=== PATIENT | male | born 1990 | race Two or more races ===

== ENCOUNTER 2021-02-04 11:39 | Emergency (ER) | payer OTHER ==
[~2021-02-04] VITALS: Ht 170.2 cm; Wt 100.0 kg
[2021-02-04] MEDS ORDERED: DEXAMETHASONE 4 MG TABLET PO ONE (12:00)
[2021-02-04 12:02] VITALS: BP 133/93
[2021-02-04] MEDS ORDERED: PRED20TA PO (12:39)
--- NOTE | 2021-02-04 12:39 | PHYS DOC ---
Past History Past Medical History: No Pertinent History Past Surgical History: No Surgical History Smoking: Non-smoker Alcohol Use: None Drug Use: None General Adult EDM: Chief Complaint: CONGESTION HPI: HPI: 30-year-old male presents with report of nasal congestion, watery eyes, and mild ear discomfort. Patient reports has been ongoing for the past few days. Patient reports typically has this occur every year when the weather becomes warm. Denies any nausea, vomiting, or diarrhea. Denies any cough or fever. Denies known exposure to COVID-19. Review of Systems: Review of Systems: Constitutional: Denies fever or chills Eyes: Denies redness or eye pain; reports watery eyes HENT: Reports nasal congestion and ear discomfort and sore throat Respiratory: Denies cough or shortness of breath Cardiovascular: Denies chest pain or palpitations GI: Denies abdominal pain, nausea, or vomiting : Denies dysuria or hematuria Musculoskeletal: Denies back pain or joint pain Integument: Denies rash or skin lesions Neurologic: Denies headache, focal weakness or sensory changes Complete systems were reviewed and found to be within normal limits, except as documented in this note. Current Medications: Current Meds: Current Medications Medications (Trade) Dose Ordered Sig/Duncan Start Time Stop Time Status Last Admin Dose Admin Dexamethasone (Decadron) 10 mg 1X ONCE 02/04/21 12:00 02/04/21 12:20 DC 02/04/21 12:26 10 MG Allergies: Allergies: Allergies Coded Allergies Type Severity Reaction Last Updated Verified No Known Drug Allergies 02/04/21 No Physical Exam: PE: Constitutional: Well developed, well nourished, no acute distress, non-toxic appearance HENT: Normocephalic, atraumatic, swollen turbinates bilaterally, nasal congestion noted, some postnasal drip appreciated, no tonsillar exudate, TMs clear bilaterally Eyes: Conjunctiva normal, no discharge Neck: Normal range of motion, supple Lungs & Thorax: No respiratory distress, equal chest rise and fall Skin: Warm, dry, no erythema, no rash Extremities: No tenderness, ROM intact, no edema Neurologic: Alert and oriented X 3, no focal deficits noted Psychologic: Affect normal, judgment normal Current Patient Data: Vital Signs: Vital Signs Date Time Temp Pulse Resp B/P (MAP) Pulse Ox O2 Delivery O2 Flow Rate FiO2 02/04/21 12:02 98.4 74 16 133/93 (106) 99 Room Air EKG: EKG: [] Radiology/Procedures: Radiology/Procedures: [] Heart Score: C/O Chest Pain: N/A Course & Med Decision Making: Course & Med Decision Making Patient presents with HPI and physical exam concerning for allergic rhinitis. Symptomatic treatment provided with oral steroid. Patient stable for discharge with outpatient follow-up with PCP. Discussed findings and plan with patient and family, who acknowledge understanding and agreement. Ch[place]orta Disclaimer: Chacorta Disclaimer: This electronic medical record was generated, in whole or in part, using a voice recognition dictation system. Departure Departure: Impression: Primary Impression: Allergic rhinitis Qualified Codes: J30.2 - Other seasonal allergic rhinitis Disposition: 01 DC HOME SELF CARE/HOMELESS Condition: STABLE Referrals: PCP,UNKNOWN (PCP) Patient Instructions: Allergic Rhinitis Additional Instructions: Use over the counter allergy medications such as Octavia or Claritin. Scripts Prednisone (PREDNISONE) 20 Mg Tablet 2 TAB PO DAILY for Allergic rhinitis, #8 TAB Start this prescription tomorrow, 02/05/21 Prov: LORRI LLOYD DO 02/04/21 LORRI LLOYD DO Feb 04, 2021 12:39
== END 2021-02-04 12:45 | disposition home or self-care (01) ==
LOC: ER 11:39
DX: J30.2 Other seasonal allergic rhinitis (principal); R09.81 Nasal congestion; J02.9 Acute pharyngitis, unspecified
CPT/HCPCS: 99283; J8540